=== PATIENT | male | born 1985 | race Caucasian/White ===

== ENCOUNTER 2020-11-18 13:29 | Outpatient (REF) | payer OTHER, SELFPAY ==
[2020-11-18 20:00] LABS: Abs Immature Grans 0.01 10^3/uL (0.0-0.06); Absolute Basophil Count 0.03 10^3/uL (0.0-0.2); Absolute Eosinophil Count 0.08 10^3/uL (0.0-0.7); Absolute Lymphocyte Count 1.14 10^3/uL (1.2-3.4); Absolute Monocyte Count 0.44 10^3/uL (0.1-0.8); Absolute Neutrophil Count 3.32 10^3/uL (1.2-6.7); Basophils % 0.6; Eosinophils % 1.6; HCT 40.3 % (40.0-50.0); HGB 13.6 g/dL (13.5-17.5); Immature Grans % 0.2; Lymphocytes % 22.7; MCH 27.6 pg (27.0-33.0); MCHC 33.7 % (32.0-36.0); MCV 81.7 fL (80-95); Monocytes % 8.8; Neutrophils % 66.1; Nucleated RBC 0 %; Platelet Count 215 10^3/uL (130-400); RBC 4.93 10^6/uL (4.36-5.78); RDW 12.8 % (11.8-14.1); RDW-SD 38.1 fL; WBC 5.02 10^3/uL (4.4-10.8)
[2020-11-18 20:05] LABS: ESR 2 mm/hr (0-15)
[2020-11-18 20:24] LABS: ALT 27 U/L (16-63); AST 19 U/L (15-37); Albumin 4.3 g/dL (3.4-5.0); Alkaline Phosphatase 78 U/L (46-116); Anion Gap 12.6 mmol/L (3-11); BUN 13 mg/dL (7-18); Bilirubin, Total 0.8 mg/dL (0.2-1.0); CO2 24.4 mmol/L (21.0-32.0); CREATININE 1.1 mg/dL (0.70-1.30); Calcium 9.4 mg/dL (8.5-10.1); Chloride 103 mmol/L (98-107); Glucose 87 mg/dL (74-106); Potassium 4.4 mmol/L (3.5-5.1); Sodium 140 mmol/L (136-145); Total Protein 7.3 g/dL (6.4-8.2)
[2020-11-18 20:26] LABS: Hemoglobin A1C 5.4 % (<5.7)
[2020-11-18 20:36] LABS: C-Reactive Protein 0.72 mg/dL (0.0-0.3)
== END 2020-11-18 13:30 | disposition home or self-care (01) ==
LOC: LBN 13:29
PROVIDERS: Visit Provider Physician Assistant Medical
DX: E03.9 Hypothyroidism, unspecified (principal)
CPT/HCPCS: 80053; 85652; 83036; 84443; 85025; 86140

== ENCOUNTER 2020-12-05 19:54 | Outpatient (REF) | payer OTHER, SELFPAY ==
[2020-12-05 15:16] LABS: Calculated LDL 105 mg/dL (<100); Cholesterol 174 mg/dL (<200); HDL Cholesterol 59 mg/dL (40-60); Triglyceride 50 mg/dL (<150)
== END 2020-12-05 19:55 | disposition home or self-care (01) ==
LOC: NCHCN 19:54
PROVIDERS: Visit Provider Physician Assistant
DX: Z13.220 Encounter for screening for lipoid disorders (principal)
CPT/HCPCS: 80061

== ENCOUNTER 2021-11-10 16:41 | Outpatient (REF) | payer BC, SELFPAY ==
[2021-11-10 18:20] LABS: TSH 6.71 uIU/mL (0.36-3.74)
== END 2021-11-10 16:42 | disposition home or self-care (01) ==
LOC: NCHCN 16:41
PROVIDERS: Visit Provider Physician Assistant
DX: E03.9 Hypothyroidism, unspecified (principal)
CPT/HCPCS: 84443

== ENCOUNTER 2022-01-26 15:42 | Outpatient (REF) | payer BC, SELFPAY ==
[2022-01-26 16:48] LABS: TSH 0.33 uIU/mL (0.36-3.74)
== END 2022-01-26 15:43 | disposition home or self-care (01) ==
LOC: NCHCN 15:42
PROVIDERS: Visit Provider Physician Assistant
DX: E03.9 Hypothyroidism, unspecified (principal)
CPT/HCPCS: 84443

== ENCOUNTER 2022-05-09 17:40 | Outpatient (REF) | payer BC, SELFPAY ==
[2022-05-09 16:02] LABS: TSH 1.67 uIU/mL (0.36-3.74)
== END 2022-05-09 17:41 | disposition home or self-care (01) ==
LOC: NCHCN 17:40
PROVIDERS: Visit Provider Physician Assistant
DX: E03.9 Hypothyroidism, unspecified (principal)
CPT/HCPCS: 84443

== ENCOUNTER 2022-07-09 18:18 | Outpatient (CLI) | payer BC, SELFPAY ==
--- NOTE | 2022-07-09 | DI.RAD_ITS ---
Exam(s) XR WRIST LT COMP NAVICULAR EXAM: XR WRIST LT COMP NAVICULAR CLINICAL HISTORY: PAIN IN LEFT WRIST. TECHNIQUE: 2D digital imaging was performed of the left wrist. Four images were obtained. Scaphoid , PA, oblique and lateral views were obtained. COMPARISON: No exams were available for comparison FINDINGS: BONES: On the scaphoid view there is a in lucency part way through the scaphoid waist which may repre sent a nondisplaced acute fracture. No other fracture is seen. There is ulnar negative variance. T here is an area of sclerosis in the lunate without contour abnormality. JOINTS: The carpal bones are normally aligned. SOFT TISSUE: There is soft tissue swelling of the wrist. IMPRESSION: 1. Findings suspicious for nondisplaced fracture through the waist of the scaphoid. An MRI may be ob tained for further evaluation. 2. Sclerosis in the lunate without flattening of the bone. In the setting of negative ulnar variance , osteonecrosis of the lunate should be considered. This also may be evaluated with an MRI. DATA REPOSITORY: RADIATION DOSE DELIVERED:
--- NOTE | 2022-07-09 19:04 | DI.VRAD_ITS ---
PROCEDURE INFORMATION: Exam: XR Left Wrist Exam date and time: 07/09/2022 6:31 PM Age: 36 years old Clinical indication: Other: Pain in left wrist TECHNIQUE: Imaging protocol: Radiologic exam of the left wrist. Views: 3 or more views. COMPARISON: No relevant prior studies available. FINDINGS: Bones/joints: There is an orthopedic screw in the proximal left 1st phalanx suggesting old fracture. There is a subtle linear lucency extending partly through the scaphoid waist, only seen on the scaphoid. A nondisplaced acute scaphoid waist fracture could have this appearance. This finding could be confirmed as a fracture by MRI, as clinically warranted. No additional acute fracture or dislocation is seen in the left wrist. There is unusual focal sclerosis in the lunate but no contour flattening. There is negative ulnar variance. Soft tissues: There is soft tissue swelling at the wrist. The pronator quadratus fat pad is partially obscured. IMPRESSION: 1. Subtle linear lucency extending partly across the scaphoid waist, only demonstrated on the scaphoid view. A nondisplaced acute scaphoid waist fracture could have this appearance and should be excluded. This finding could be confirmed as a fracture by MRI, as clinically warranted. 2. No additional acute fracture or dislocation is seen in the wrist. 3. Unusual focal sclerosis in the lunate but no contour flattening. In the setting of negative ulnar variance, early Kienbock's disease/osteonecrosis of the lunate must be considered. This finding could be further evaluated by MRI. Dictated and Authenticated by: Bill Richmond MD. Ordering:BENJAMIN KANG MD
== END 2022-07-09 18:38 ==
LOC: DI 18:20
PROVIDERS: Visit Provider Nurse Practitioner Family
DX: M25.532 Pain in left wrist (principal); M79.89 Other specified soft tissue disorders; M25.832 Other specified joint disorders, left wrist
CPT/HCPCS: 73110

== ENCOUNTER 2022-07-18 09:01 | Outpatient (CLI) | payer BC, SELFPAY ==
--- NOTE | 2022-07-18 08:45 | DI.RAD_ITS ---
Exam(s) XR WRIST LT COMP NAVICULAR EXAM: XR WRIST LT COMP NAVICULAR INDICATION: f/u fx. COMPARISON: No exams were available for comparison TECHNIQUE: 2D digital imaging was performed. Four views. FINDINGS: The scaphoid fracture shows continued healing. No new abnormalities. DATA REPOSITORY: RADIATION DOSE DELIVERED:
== END 2022-07-18 09:02 | disposition home or self-care (01) ==
LOC: DIORS 09:01
PROVIDERS: PCP Physician Assistant; Referring Provider Physician Assistant; Visit Provider Student in an Organized Health Care Education/Training Program
DX: S62.015A Nondisplaced fracture of distal pole of navicular [scaphoid] bone of left wrist, initial encounter for closed fracture; X58.XXXA Exposure to other specified factors, initial encounter
CPT/HCPCS: 73110

== ENCOUNTER 2022-08-15 08:52 | Outpatient (CLI) | payer BC, SELFPAY ==
--- NOTE | 2022-08-15 08:15 | DI.RAD_ITS ---
Exam(s) XR WRIST LT LIMITED EXAM: XR WRIST LT LIMITED CLINICAL HISTORY: left wrist f/u. TECHNIQUE: 2D digital imaging was performed of the left wrist. Two images were obtained. Scaphoid, PA, oblique and lateral views were obtained. COMPARISON: CR,XR XR WRIST LT COMP NAVICULAR from 07/09/2022 CR XR WRIST LT COMP NAVICULAR from 07/18/2022 FINDINGS: BONES: The scaphoid fracture line is still visualized on the current examination. No bony destructiv e lesion is seen. JOINTS: The carpal bones are normally aligned. SOFT TISSUE: Normal. IMPRESSION: No change in appearance of the scaphoid fracture. DATA REPOSITORY: RADIATION DOSE DELIVERED:
== END 2022-08-15 08:53 | disposition home or self-care (01) ==
LOC: DIORS 08:52
PROVIDERS: PCP Physician Assistant; Referring Provider Physician Assistant; Visit Provider Student in an Organized Health Care Education/Training Program
DX: S62.002A Unspecified fracture of navicular [scaphoid] bone of left wrist, initial encounter for closed fracture (principal)
CPT/HCPCS: 73100

== ENCOUNTER 2022-09-12 08:47 | Outpatient (CLI) | payer BC, SELFPAY ==
--- NOTE | 2022-09-12 08:30 | DI.RAD_ITS ---
Exam(s) XR WRIST LT LIMITED EXAM: XR WRIST LT LIMITED INDICATION: wrist f/u. COMPARISON: CR,XR XR WRIST LT COMP NAVICULAR from 07/09/2022 CR XR WRIST LT COMP NAVICULAR from 07/18/2022 CR XR WRIST LT LIMITED from 08/15/2022 TECHNIQUE: 2D digital imaging was performed. Two views. FINDINGS: There is continued healing of the scaphoid fracture. Area of sclerosis in the lunate likely represen ts a bone island. No evidence of avascular necrosis of the scaphoid or lunate. DATA REPOSITORY: RADIATION DOSE DELIVERED:
== END 2022-09-12 08:48 | disposition home or self-care (01) ==
LOC: DIORS 08:47
PROVIDERS: PCP Physician Assistant; Referring Provider Physician Assistant; Visit Provider Student in an Organized Health Care Education/Training Program
DX: S62.015D Nondisplaced fracture of distal pole of navicular [scaphoid] bone of left wrist, subsequent encounter for fracture with routine healing (principal); X58.XXXD Exposure to other specified factors, subsequent encounter; M25.532 Pain in left wrist
CPT/HCPCS: 73100

== ENCOUNTER 2023-06-12 15:04 | Outpatient (REF) | payer BC, SELFPAY ==
[2023-06-12 15:07] LABS: HCT 43.9 % (40.0-50.0); HGB 14.3 g/dL (13.5-17.5); MCH 25.9 pg (27.0-33.0); MCHC 32.6 % (32.0-36.0); MCV 80 fL (80-95); MPV 10.9 fL (8.0-11.0); Platelet Count 276 10^3/uL (130-400); RBC 5.52 10^6/uL (4.36-5.78); RDW 13.7 % (11.8-14.1); WBC 5.87 10^3/uL (4.4-10.8)
[2023-06-12 16:05] LABS: ALT 28 U/L (16-63); AST 17 U/L (15-37); Albumin 4.4 g/dL (3.4-5.0); Alkaline Phosphatase 94 U/L (46-116); Anion Gap 10.1 mmol/L (3-11); BUN 17 mg/dL (7-18); Bilirubin, Total 0.8 mg/dL (0.2-1.0); CO2 28.9 mmol/L (21.0-32.0); Calcium 9.6 mg/dL (8.5-10.1); Calculated LDL 102 mg/dL (<100); Chloride 104 mmol/L (98-107); Cholesterol 173 mg/dL (<200); Glucose 95 mg/dL (74-106); HDL Cholesterol 54 mg/dL (40-60); Potassium 4.7 mmol/L (3.5-5.1); Sodium 143 mmol/L (136-145); TSH 0.22 uIU/Ml (0.36-3.74); Total Protein 7.4 g/dL (6.4-8.2); Triglyceride 89 mg/dL (<150)
== END 2023-06-12 15:05 | disposition home or self-care (01) ==
LOC: NCHCN 15:04
PROVIDERS: PCP Physician Assistant; Referring Provider Physician Assistant; Visit Provider Physician Assistant
DX: E03.9 Hypothyroidism, unspecified (principal)
CPT/HCPCS: 80053; 80061; 85027; 84443

== ENCOUNTER 2024-02-10 15:18 | Outpatient (REF) | payer BC, SELFPAY ==
[2024-02-10 17:10] LABS: TSH 0.75 uIU/mL (0.36-3.74)
== END 2024-02-10 15:19 | disposition home or self-care (01) ==
LOC: NCHCN 15:18
PROVIDERS: PCP Physician Assistant; Visit Provider Physician Assistant
DX: E03.9 Hypothyroidism, unspecified (principal)
CPT/HCPCS: 84443

== ENCOUNTER 2024-12-01 16:24 | Outpatient (REF) | payer BC, SELFPAY ==
[2024-12-01 20:28] LABS: TSH 1.23 uIU/mL (0.36-3.74)
[2024-12-02 17:52] LABS: T3,Free 3.3 pg/mL (2.8-5.3)
== END 2024-12-01 16:25 | disposition home or self-care (01) ==
LOC: NCHCN 16:24
PROVIDERS: PCP Physician Assistant; Visit Provider Physician Assistant
DX: E03.9 Hypothyroidism, unspecified (principal)
CPT/HCPCS: 84439; 84443; 84481